=== PATIENT | female | born 1985 ===

== ENCOUNTER 2017-02-10 20:26 | Emergency (ER) | payer SELFPAY ==
[2017-02-10] MEDS ORDERED: ONDANSETRON 4 MG/2 ML VIAL ONE (20:55)
[2017-02-10] MEDS ORDERED: ONDANSETRON 4 MG/2 ML VIAL IVP ONE (20:57)
--- NOTE | 2017-02-10 20:58 | EDPHY ---
H & P Stated Complaint: nvd recent travel from [facility] HPI/ROS: HPI CHIEF COMPLAINT: Nausea, vomiting, diarrhea, dehydration HISTORY OF PRESENT ILLNESS: This patient very pleasant 31-year-old female denies any significant medical history does not take any daily medications, presents emergency room with 2 days of nausea watery brown diarrhea and abdominal cramping. Denies fever, chest pain or shortness of breath, denies vomiting. Denies blood in her stool. States that today she had watery diarrhea and is feeling dehydrated. Decided come the emergency room due to generalized weakness. Denies urinary symptoms, back pain, being . Past Medical History: Denies any significant medical history Past Surgical History: Denies any surgical history Social History: Lives in [facility] here visiting her sister, denies drugs alcohol tobacco products Family History: Noncontributory ROS REVIEW OF SYSTEMS: A comprehensive 10 point review of systems is otherwise negative aside from elements mentioned in the history of present illness. Exam Constitutional appears well nontoxic, triage nursing summary reviewed, vital signs reviewed, awake/alert. Eyes normal conjunctivae and sclera, EOMI, PERRLA. HENT normal inspection, atraumatic, moist mucus membranes, no epistaxis, neck supple/ no meningismus, no raccoon eyes. Respiratory clear to auscultation bilaterally, normal breath sounds, no respiratory distress, no wheezing. Cardiovascular rate normal, regular rhythm, no murmur, no edema, distal pulses normal. Gastrointestinal soft, non-tender, no rebound, no guarding, normal bowel sounds, no distension, no pulsatile mass. Genitourinary no CVA tenderness. Musculoskeletal no midline vertebral tenderness, full range of motion, no calf swelling, no tenderness of extremities, no meningismus, good pulses, neurovascularly intact. Skin pink, warm, & dry, no rash, skin atraumatic. Neurologic awake, alert and oriented x 3, AAOx3, moves all 4 extremities equally, motor intact, sensory intact, CN II-XII intact, normal cerebellar, normal vision, normal speech. Psychiatric normal mood/affect. Heme/Lymph/Immune no lymphadenopathy. Differential Diagnosis: includes but is not limited to in a particular order, electrolyte disturbance, dehydration, diarrheal illness, GI illness, doubt acute appendicitis given no significant right lower quadrant pain complains of diffuse crampy abdominal pain with watery diarrhea. Medical Decision Making: Plan for this patient IV establishment check blood work including abdominal labs, IV fluid bolus and IV Zofran and re-evaluate. Re-evaluation: 2312: at this time re-evaluation abdomen is soft but mildly tender. She is feeling better after IV fluids nausea medicine. No diarrhea here. Blood work shows an abnormal white blood cell count bandemia. Due to the bandemia and abdominal pain patient had a CT scan abdomen pelvis with IV contrast. CT scan of the abdomen pelvis with IV contrast. The results of the study are this shows enteritis is a fluid fat filled large bowel but no evidence of acute inflammatory process specifically no evidence of acute appendicitis The study was read by Dr. William Jordan I viewed the images myself on the PACS system. Re-eval: Patient is resting comfortably here abdomen soft. No guarding or peritoneal signs. Blood work and CT reviewed. Blood work does show a normal white blood cell count with a bandemia. Her CT scan is reassuring shows enteritis and fluid-filled colon. No evidence of appendicitis or acute inflammatory process. Patient p.o. challenge well she does feel better after IV fluids. She feels comfortable discharge going home. I did explain if she develops worsening abdominal pain fever or vomiting she should return emergency room. She understands. Take home pack of Zofran she was unable to provide a stool sample. I did order stool studies. However she has not had any diarrhea here in the emergency room. Source: Patient - Personal History LMP (Females 10-55): 8-14 Days Ago Current Tetanus/Diphtheria Vaccine: No Current Tetanus Diphtheria and Acellular Pertussis (TDAP): No - Medical/Surgical History Hx Asthma: No Hx Chronic Respiratory Disease: No Hx Diabetes: No Hx Cardiac Disease: No Hx Renal Disease: No Hx Cirrhosis: No Hx Alcoholism: No Hx HIV/AIDS: No Hx Splenectomy or Spleen Trauma: No - Social History Smoking Status: Never smoked Constitutional: Initial Vital Signs Temperature (C) 37.4 C 02/10/17 20:29 Heart Rate 106 H 02/10/17 20:29 Respiratory Rate 30 H 02/10/17 20:29 Blood Pressure 102/78 02/10/17 20:29 O2 Sat (%) 97 02/10/17 20:29 O2 Delivery Mode Room Air Allergies/Adverse Reactions: No Known Allergies Allergy (Unverified 02/10/17 20:28) Home Medications: Medication Instructions Recorded NK [No Known Home Meds] 02/10/17 Medical Decision Making - Diagnostics Imaging Results: Imaging Impressions Abdomen CT 02/10/17 23:09 Impression: 1. Mild apparent wall thickening of ileum, which could be related to underdistention or enteritis. 2. Mildly prominent mesenteric lymph nodes, likely reactive. 3. Additional findings as above. Findings discussed with Fidel Mayes MD 02/10/2017 at 23:33. - Data Points Laboratory Results: Laboratory Results 02/10/17 21:07 02/10/17 21:07 02/10/17 02/10/17 02/10/17 22:42 21:32 21:07 WBC RBC Hgb Hct MCV MCH MCHC RDW Plt Count MPV Neut % (Auto) Lymph % (Auto) Grant % (Auto) Eos % (Auto) Baso % (Auto) Nucleat RBC Rel Count Absolute Neuts (auto) Absolute Lymphs (auto) Absolute Monos (auto) Absolute Eos (auto) Absolute Basos (auto) Absolute Nucleated RBC Immature Gran % Seg Neutrophils % Band Neutrophils % Lymphocytes % Monocytes % Eosinophils % Immature Gran # Absolute Seg Neuts Absolute Band Neuts Absolute Lymphocytes Absolute Monocytes Absolute Eosinophils Differential Comment RBC/WBC/PLT Morphology Platelet Estimate Sodium Potassium Chloride Carbon Dioxide Anion Gap BUN Creatinine Estimated GFR Glucose Calcium Total Bilirubin Conjugated Bilirubin Unconjugated Bilirubin AST ALT Alkaline Phosphatase Total Protein Albumin Lipase Beta HCG, Qual NEGATIVE Urine Color PALE YELLOW YELLOW Urine Appearance CLEAR MODERATELY TURBID Urine pH 5.0 5.0 (5.0-7.5) (5.0-7.5) Ur Specific [place] 1.002 1.015 (1.002-1.030) (1.002-1.030) Urine Protein NEGATIVE NEGATIVE (NEGATIVE) (NEGATIVE) Urine Ketones TRACE H TRACE H (NEGATIVE) (NEGATIVE) Urine Blood 1+ H 2+ H (NEGATIVE) (NEGATIVE) Urine Nitrate NEGATIVE NEGATIVE (NEGATIVE) (NEGATIVE) Urine Bilirubin NEGATIVE NEGATIVE (NEGATIVE) (NEGATIVE) Urine Urobilinogen NEGATIVE EU EU NEGATIVE EU EU (0.2-1.0) (0.2-1.0) Ur Leukocyte Esterase NEGATIVE 3+ H (NEGATIVE) (NEGATIVE) Urine RBC NONE SEEN /hpf /hpf 15-25 /hpf H /hpf (0-3) (0-3) Urine WBC 1-3 /hpf /hpf 25-50 /hpf H /hpf (0-3) (0-3) Ur Epithelial Cells TRACE /lpf /lpf 3+ /lpf H /lpf (NONE-1+) (NONE-1+) Urine Bacteria TRACE /hpf H /hpf (NONE SEEN) Urine Mucus TRACE /lpf /lpf TRACE /lpf /lpf (NONE-1+) (NONE-1+) Urine Glucose NEGATIVE NEGATIVE (NEGATIVE) (NEGATIVE) 02/10/17 02/10/17 21:07 21:07 WBC 6.64 10^3/uL 10^3/uL (3.80-9.50) RBC 5.22 10^6/uL 10^6/uL (4.18-5.33) Hgb 13.2 g/dL g/dL (12.6-16.3) Hct 40.9 % % (38.0-47.0) MCV 78.4 fL L fL (81.5-99.8) MCH 25.3 pg L pg (27.9-34.1) MCHC 32.3 g/dL L g/dL (32.4-36.7) RDW 13.6 % % (11.5-15.2) Plt Count 314 10^3/uL 10^3/uL (150-400) MPV 9.9 fL fL (8.7-11.7) Neut % (Auto) Not Reported Lymph % (Auto) Not Reported Grant % (Auto) Not Reported Eos % (Auto) Not Reported Baso % (Auto) Not Reported Nucleat RBC Rel Count 0.0 % % (0.0-0.2) Absolute Neuts (auto) Not Reported Absolute Lymphs (auto) Not Reported Absolute Monos (auto) Not Reported Absolute Eos (auto) Not Reported Absolute Basos (auto) Not Reported Absolute Nucleated RBC 0.00 10^3/uL 10^3/uL (0-0.01) Immature Gran % Not Reported Seg Neutrophils % 60 % % Band Neutrophils % 5 % % Lymphocytes % 26 % % Monocytes % 7 % % Eosinophils % 2 % % Immature Gran # Not Reported Absolute Seg Neuts 3.98 10^/uL 10^/uL (1.70-6.50) Absolute Band Neuts 0.33 10^3/uL 10^3/uL (0.00-0.70) Absolute Lymphocytes 1.73 10^3/uL 10^3/uL (1.00-3.00) Absolute Monocytes 0.46 10^3/uL 10^3/uL (0.30-0.80) Absolute Eosinophils 0.13 10^3/uL 10^3/uL (0.03-0.40) Differential Comment RBC/WBC/PLT Morphology NORMAL (NORMAL) Platelet Estimate ADEQUATE (ADEQ) Sodium 135 mEq/L mEq/L (134-144) Potassium 3.6 mEq/L mEq/L (3.5-5.2) Chloride 103 mEq/L mEq/L (97-110) Carbon Dioxide 19 mEq/l L mEq/l (22-31) Anion Gap 13 mEq/L mEq/L (8-16) BUN 7 mg/dL mg/dL (7-23) Creatinine 0.8 mg/dL mg/dL (0.6-1.0) Estimated GFR > 60 Glucose 101 mg/dL H mg/dL (70-100) Calcium 9.4 mg/dL mg/dL (8.5-10.4) Total Bilirubin 0.6 mg/dL mg/dL (0.1-1.4) Conjugated Bilirubin 0.3 mg/dL mg/dL (0.0-0.5) Unconjugated Bilirubin 0.3 mg/dL mg/dL (0.0-1.1) AST 34 IU/L IU/L (14-46) ALT 19 IU/L IU/L (9-52) Alkaline Phosphatase 70 IU/L IU/L (38-126) Total Protein 8.2 g/dL g/dL (6.3-8.2) Albumin 4.8 g/dL g/dL (3.5-5.0) Lipase 94.0 IU/L IU/L (23-300) Beta HCG, Qual Urine Color Urine Appearance Urine pH Ur Specific [place] Urine Protein Urine Ketones Urine Blood Urine Nitrate Urine Bilirubin Urine Urobilinogen Ur Leukocyte Esterase Urine RBC Urine WBC Ur Epithelial Cells Urine Bacteria Urine Mucus Urine Glucose Medications Given: Discontinued Medications Sodium Chloride (Ns) 1,000 mls @ 0 mls/hr IV ONCE ONE PRN Reason: Wide Open Stop: 02/10/17 21:00 Last Admin: 02/10/17 21:08 Dose: 1,000 mls Sodium Chloride (Ns) 1,000 mls @ 0 mls/hr IV ONCE ONE PRN Reason: Wide Open Stop: 02/10/17 21:05 Last Admin: 02/10/17 21:46 Dose: 1,000 mls Morphine Sulfate (Morphine) 2 mg IVP EDNOW ONE Stop: 02/10/17 21:38 Last Admin: 02/10/17 22:15 Dose: Not Given Ondansetron HCl (Zofran) 4 mg IVP EDNOW ONE Stop: 02/10/17 20:58 Last Admin: 02/10/17 21:08 Dose: 4 mg Departure - Departure Disposition: Home, Routine, Self-Care Clinical Impression: Abdominal pain Qualifiers: Abdominal location: generalized Qualified Code(s): R10.84 - Generalized abdominal pain Diarrhea Qualifiers: Diarrhea type: unspecified type Qualified Code(s): R19.7 - Diarrhea, unspecified Condition: Good Instructions: Acute Diarrhea (ED), Acute Abdominal Pain (ED) Additional Instructions: 1. Return to the emergency room if you have any worsening symptoms this includes abdominal pain, fever vomiting. 2.Please stay well-hydrated drink lots of fluids. Referrals: NONE *PRIMARY CARE P,. [Primary Care Provider] - As per Instructions
[2017-02-10] MEDS ORDERED: NS 1,000 ML IV ONE ×2 (20:59→21:04)
[2017-02-10 21:19] LABS: ADD MORPH? NO; ADD SCAN? YES; ATYPICAL LYMPHOCYTE FLAG 80 (0-99); FRAGMENT RBC FLAG 0 (0-99); HEMATOCRIT 40.9 % (38.0-47.0); HEMOGLOBIN 13.2 g/dL (12.6-16.3); LIPEMIA HEMOLYSIS FLAG 80 (0-99); MEAN CELL HEMOGLOBIN 25.3 pg (27.9-34.1); MEAN CELL HEMOGLOBIN CONCENTR. 32.3 g/dL (32.4-36.7); MEAN CELL VOLUME 78.4 fL (81.5-99.8); MEAN PLATELET VOLUME 9.9 fL (8.7-11.7); PLATELET CLUMPS FLAG 10 (0-99); PLATELET COUNT 314 10^3/uL (150-400); RED BLOOD CELL COUNT 5.22 10^6/uL (4.18-5.33); RED CELL DISTRIBUTION WIDTH 13.6 % (11.5-15.2)
[2017-02-10 21:39] LABS: LEFT SHIFT FLG 110 (0-99)
[2017-02-10 21:44] LABS: COLOR YELLOW; LEUKOCYTE ESTERASE,URINE 3+ (NEGATIVE); NITRITE,URINE NEGATIVE (NEGATIVE)
[2017-02-10 21:50] LABS: BACTERIA TRACE /hpf (NONE SEEN); MUCUS TRACE /lpf (NONE-1+); RBC,URINE 15-25 /hpf (0-3); WBC,URINE 25-50 /hpf (0-3)
[2017-02-10 21:54] LABS: ALANINE AMINOTRANSFERASE 19 IU/L (9-52); ALBUMIN 4.8 g/dL (3.5-5.0); ALKALINE PHOSPHATASE 70 IU/L (38-126); ANION GAP 13 mEq/L (8-16); ASPARTATE AMINOTRANSFERASE 34 IU/L (14-46); BILIRUBIN,TOTAL 0.6 mg/dL (0.1-1.4); BILIRUBIN-CONJUGATED 0.3 mg/dL (0.0-0.5); BILIRUBIN-UNCONJUGATED 0.3 mg/dL (0.0-1.1); CALCIUM 9.4 mg/dL (8.5-10.4); CARBON DIOXIDE 19 mEq/l (22-31); CHLORIDE 103 mEq/L (97-110); CREATININE 0.8 mg/dL (0.6-1.0); GLOMERULAR FILTRATION RATE > 60; GLUCOSE 101 mg/dL (70-100); POTASSIUM 3.6 mEq/L (3.5-5.2); SODIUM 135 mEq/L (134-144); TOTAL PROTEIN 8.2 g/dL (6.3-8.2)
[2017-02-10 22:11] LABS: ADD DIFF? YES; SCAN POSITIVE
[2017-02-10 22:36] LABS: PLATELET ESTIMATE ADEQUATE (ADEQ)
[2017-02-10 22:53] LABS: COLOR PALE YELLOW; LEUKOCYTE ESTERASE,URINE NEGATIVE (NEGATIVE); NITRITE,URINE NEGATIVE (NEGATIVE)
[2017-02-10 22:57] LABS: MUCUS TRACE /lpf (NONE-1+)
[2017-02-10 22:58] LABS: RBC,URINE NONE SEEN /hpf (0-3)
[2017-02-10] MEDS ORDERED: IOPAMIDOL (ISOVUE-300) 100 ML BTL IV ONE (23:12)
[2017-02-10 23:14] VITALS: BP 110/67; TEMP 99
[2017-02-10] MEDS ORDERED: ONDANSETRON 4MG PREPACK#2 BTL TAKEHOME ONE (23:45)
[2017-02-10 23:58] VITALS: PULSE 96; RESP 14; O2SAT 95
== END 2017-02-10 23:58 | disposition home or self-care (01) ==
DX: R19.7 Diarrhea, unspecified (principal); R10.84 Generalized abdominal pain
CPT/HCPCS: 96374; J2405; Q9967